=== PATIENT | female | born 1965 | race Caucasian/White ===

== ENCOUNTER → 2017-06-26 | Outpatient (CLI) | payer OTHER ==
[~2017-06-26] MED LIST: ACYC1OIN4 TOP; ASPEC325 PO; BENZ100C84 PO; CALC500C70 PO; CEPH500C2 PO; CHOL1000 PO; CITA40TA4 PO; CYAN100020 PO; CYAN500T13 PO; DICL1GEL12 TOP; DIPH25CA PO; FEXO1TAB49 PO; FLUO20CA35 PO; MELO7.5T5 PO; MULTTAB PO; OMEG10007 PO; OXYM0.0592 NAE; POTA-74 PO; TRAZ50TA35 PO
== END | disposition home or self-care (01) ==
LOC: C.LABSPEC 09:46
PROVIDERS: ATTEND Internal Medicine
DX: R35.0 Frequency of micturition (principal)

== ENCOUNTER 2017-06-27 00:38 | Emergency (ER) | payer OTHER ==
[~2017-06-27] VITALS: Ht 152.4 cm; Wt 90.0 kg
[~2017-06-27 00:38] MED LIST changes: -CALC500C70 PO; -CEPH500C2 PO; -CHOL1000 PO; -CITA40TA4 PO; -CYAN100020 PO; -DICL1GEL12 TOP; -DIPH25CA PO; -FEXO1TAB49 PO; -MELO7.5T5 PO; -OXYM0.0592 NAE; -POTA-74 PO; -TRAZ50TA35 PO
[2017-06-27 00:46] VITALS: TEMP 37; Ht 152.4 cm; Wt 90.0 kg
[2017-06-27] MEDS ORDERED: TRAMADOL HCL 50 MG TAB PO STA (01:19)
[2017-06-27] MEDS ORDERED: TRAZ50TA35 PO (01:36)
[2017-06-27] MEDS ORDERED: CITA40TA4 PO (01:37)
[2017-06-27] MEDS ORDERED: MELO7.5T5 PO (01:38)
[2017-06-27] MEDS ORDERED: POTA-74 PO (01:39)
[2017-06-27] MEDS ORDERED: FEXO1TAB49 PO (01:41)
[2017-06-27] MEDS ORDERED: CEPH500C2 PO (01:42)
[2017-06-27] MEDS ORDERED: OXYM0.0592 NAE (01:43)
[2017-06-27] MEDS ORDERED: DIPH25CA PO (01:44)
[2017-06-27] MEDS ORDERED: CALC500C70 PO (01:46)
[2017-06-27] MEDS ORDERED: CHOL1000 PO (01:47)
[2017-06-27] MEDS ORDERED: CYAN100020 PO (01:48)
[2017-06-27] MEDS ORDERED: KETOROLAC TROMETHAMINE 60 MG/2 ML VIAL IM STA (02:22)
[2017-06-27] MEDS ORDERED: DICL1GEL12 TOP (02:24)
--- NOTE | 2017-06-27 02:27 | EMERGENCY ROOM VISIT NOTE ---
ED Visit Note First contact with patient: 01:01 CHIEF COMPLAINT: Left knee pain HISTORY OF PRESENT ILLNESS: This 51-year-old female patient presents to the emergency department approximately 7 hours after sustaining an injury to the left knee when she fell in her bedroom. The patient states she was getting ready for work, when she slipped on the laminate floor in the bedroom. When she fell, she believes she scraped her hand on the table, but states she landed on her left knee straight on the floor. She did go to work, however was sent home due to the worsening pain. At 6:00, the patient took some ibuprofen and placed ice on the knee. She was initially able to walk, however states now she is not able. The patient denies any other injuries besides their knee. The patient denies swelling or bruising. There is pain in the lateral aspect of the knee. They rate the pain as severe and 8/10. The patient states they are now not able to walk on it. No numbness or tingling. No previous injuries to this knee. No ankle, foot or hip pain. REVIEW OF SYSTEMS: A 6 system review of systems was completed with positives and pertinent negatives listed in the HPI. ALLERGIES: None MEDICATIONS: Aspirin, Keflex, citalopram, vitamin B12, Benadryl, Octavia, Mobic , Flonase, potassium, trazodone PMH: Anxiety SOCIAL HISTORY: The patient lives locally with family. She denies drug, alcohol , tobacco use. PHYSICAL EXAM: Vital Signs: Reviewed Nurse's notes, vital signs stable. GENERAL : This is a 51-year-old female, no acute distress, but appears in pain, well- developed, well-nourished. MENTAL STATUS: Alert, oriented to person place and time, and cooperative. MUSCULOSKELETAL: The left knee is mildly swollen. There is no ecchymosis. There is no obvious joint effusion present. The patient is tender over the lateral aspect of the knee. There is no joint line tenderness. The patella does appropriately subluxate. Range of motion is limited. The patient states she is unable to flex the knee. Strength of the quads and hamstrings is 5/5. Juan's is negative. Narinder's and Anterior Drawer tests are negative. There is discomfort with varus and valgus stressing. The foot and toes are warm and well-perfused. Dorsalis pedis pulse 2+. Sensation to pain and light touch is intact. Capillary refill less than 2 seconds. RADIOLOGY: X-Ray Left Knee: FINDINGS: No acute fracture or malalignment. Joint spaces preserved. Tricompartmental degenerative changes evidenced by osteophytosis. Chondrocalcinosis may also be present in the medial compartment. Osteophytosis at the intercondylar region also suggested. Moderate knee joint effusion. Calcification in the distal patellar tendon or immediately superficial to the patellar tendon likely degenerative in etiology. IMPRESSION: 1. Tricompartmental degenerative changes with moderate knee joint effusion. 2. No acute osseous injury. EMERGENCY DEPARTMENT COURSE: I examined the patient. I offered Tylenol initially for pain and the patient's daughter becomes aggitated and states "she is going to need something stronger than Tylenol." I offered Tramadol. The patient was given a dose of Tramadol. X-rays of the left knee were reviewed by myself and Dr. Mcintosh and reveals suspicions for patellar tendon injury. The x- rays were reviewed by radiologist in the morning which did show some calcification at the distal patellar tendon which is likely degenerative in etiology. On re-evaluation, the patient is now slurring her speech and repeatedly asking questions. She continues to experience pain and inability to flex the knee. I discussed suspicions with the patient and her daughter at bedside. The patient's daughter states the Tramadol did not help with the patient's pain and requests for her to have a shot of pain medication. The patient was given a shot of Toradol. The patient's daughter then requests a prescription for pain medication, however, I discussed with her that as there is no obvious injury on x-ray, and due to the mechanism of injury, I recommended treatment with anti-inflammatory medication and Tylenol. The patient 's daughter now states "Tramadol isn't even a narcotic. I guess we will have to go somewhere else tomorrow for pain medicine, since you won't give her any." I offered a script for Mobic or Diclofenac, but the patient states she already has Mobic. She was offered a script for Voltaren gel. She is willing to take this script. The patient was placed in a knee immobilizer under my direction and the position was satisfactory. The patient was instructed on the use of a walker. Discharge instructions reviewed. The patient was discharged home in good condition. I attest that I have personally reviewed the patient's current medication list. Patient was found to have normal blood pressure on screening and does not require follow-up. DIFFERENTIAL DIAGNOSIS: Fracture, contusion, patellar tendon injury, sprain/ strain, malignancy, and others DIAGNOSIS: Left knee contusion Problem List Medical Problems: (1) Depression Status: Chronic Surgical Problems: (1) H/O shoulder surgery Status: Resolved Current/Historical Medications Scheduled Calcium/Vitamin D (Os-Gurmeet 500 Plus D), 1 TAB PO DAILY Cephalexin Monohydrate (Keflex), 500 MG PO QID Cholecalciferol (Vitamin D3), 1,000 UNITS PO DAILY Citalopram (Citalopram Hydrobromide), 40 MG PO DAILY Cyanocobalamin (Vitamin B12), 500 MCG PO DAILY Diclofenac Sodium (Topical) (Voltaren 1% Top Gel), 1 APPLN TOP QID Fexofenadine Hcl (Octavia Allergy), 180 MG PO DAILY Fish Oil (Snelling-3), 1 CAP PO BID Meloxicam (Mobic), 15 MG PO DAILY Multivitamins/Minerals (Mvi With Minerals), 1 TAB PO DAILY Potassium Chloride (Potassium Chloride Er), 50 MG PO DAILY Trazodone Hcl (Trazodone), 50 MG PO HS Scheduled PRN Diphenhydramine Hcl (Allergy Relief), Unknown Dose PO DIRECTED PRN for Allergic Reaction Oxymetazoline Hcl (Nasal [place]), 1 SPRAY GARFIELD DIRECTED PRN for dryness Allergies Coded Allergies: No Known Allergies (Unverified , 06/27/17) Vital Signs Date Time Temp Pulse Resp B/P (MAP) Pulse Ox O2 Delivery O2 Flow Rate FiO2 06/27/17 03:11 70 20 97 06/27/17 02:59 76 18 147/66 98 Room Air 06/27/17 00:46 37.0 84 20 139/77 97 Room Air Medications Administered Medications (Trade) Dose Ordered Sig/Armani Route Start Time Stop Time Status Last Admin Dose Admin Tramadol HCl (Ultram Tab) 50 mg NOW STAT PO 06/27/17 01:19 06/27/17 01:20 DC 06/27/17 01:38 50 MG Ketorolac Tromethamine (Toradol Inj) 30 mg NOW STAT IM 2/4/18 02:22 06/27/17 02:23 DC 06/27/17 02:40 30 MG Departure Information Impression Primary Impression: Fall Additional Impression: Contusion of left knee Dispostion Home / Self-Care Condition GOOD Prescriptions Diclofenac Sodium (Topical) (VOLTAREN 1% TOP GEL) 1 % Gel 1 APPLN TOP QID, #1 TUBE Prov: JasonElenitaElinjen Weeks, URSZULA 06/27/17 Referrals Zaira Lopez M.D. (PCP) Marcello Levine M.D. Patient Instructions ED Contusion Lower Ext, ED Immobilizer Knee, My [facility] Additional Instructions You have been treated in the Emergency Department for Knee Pain. You have received pain medicine in the emergency department which impairs your ability to operate a vehicle. It is illegal for you to drive after receiving these medicines. As discussed, x-rays did not reveal any acute fracture, dislocation, or obvious soft-tissue injury. This does appear to be a contusion, or bruise. You have been prescribed Voltaren Gel to be used for pain. Use this medication as directed. For pain control, you can use the following whel-qtq-cijlogm medicines (if >12 yo): Ibuprofen(Motrin, Advil) may be used for fever or pain. Use 600mg every six hours as needed. Take with food. Avoid using more than 2400mg in a 24 hour period. Do not use 2400mg per day for more than three consecutive days without physician direction. Prolonged inappropriate use can lead to stomach upset or ulcers. Do not take this medication with other NSAIDs including ibuprofen, Naprxen, Naprosyn, Advil, Motrin, Aleve, Meloxicam) (AND/OR) Acetaminophen(Tylenol) may be used for fever or pain. Use 1000mg every six hours as needed. Avoid using more than 3000mg in a 24 hour period. If this is a recent injury (<24 hrs), ice can be applied to the area of pain for the first 3 days to help decrease pain and inflammation. Ice massages can be performed by freezing water in a paper cup, peeling back the cup to expose the ice and then massaging over the affected area. You have been provided the number for an Orthopaedic Surgeon. You should call this number as soon as possible to establish a follow-up visit from today's Emergency Department visit. Keep the knee brace in place until cleared by Orthopedics. Use the walker you have been provided to keep ALL weight off of the knee until weight bearing is tolerable. Return to the Emergency Department if your current symptoms worsen despite treatment course outlined above. Problem Qualifiers Primary Impression: Fall Encounter type: initial encounter Qualified Codes: W19.XXXA - Unspecified fall, initial encounter Additional Impression: Contusion of left knee Encounter type: initial encounter Qualified Codes: S80.02XA - Contusion of left knee, initial encounter
[2017-06-27 02:59] VITALS: BP 147/66
[2017-06-27 03:11] VITALS: PULSE 70; O2SAT 97
--- NOTE | 2017-06-27 06:48 | DIAGNOSTIC IMAGING REPORT ---
L KNEE 1 OR 2 VIEWS ROUTINE CLINICAL HISTORY: 51 years-old Female presenting with Left knee pain s/p fall. TECHNIQUE: Frontal and lateral views of the left knee were obtained. COMPARISON: None. FINDINGS: No acute fracture or malalignment. Joint spaces preserved. Tricompartmental degenerative changes evidenced by osteophytosis. Chondrocalcinosis may also be present in the medial compartment. Osteophytosis at the intercondylar region also suggested. Moderate knee joint effusion. Calcification in the distal patellar tendon or immediately superficial to the patellar tendon likely degenerative in etiology. IMPRESSION: 1. Tricompartmental degenerative changes with moderate knee joint effusion. 2. No acute osseous injury. Electronically signed by: Ernesto Arce M.D. 06/27/2017 6:47 AM Dictated Date/Time: 06/27/2017 6:45 AM
== END 2017-06-27 03:12 | disposition home or self-care (01) ==
LOC: C.EDB 00:40
DX: S80.02XA Contusion of left knee, initial encounter (principal); W01.0XXA Fall on same level from slipping, tripping and stumbling without subsequent striking against object, initial encounter; Y92.003 Bedroom of unspecified non-institutional (private) residence as the place of occurrence of the external cause; Y93.E8 Activity, other personal hygiene; F41.9 Anxiety disorder, unspecified; Z79.82 Long term (current) use of aspirin

== ENCOUNTER 2020-03-29 13:55 | Observation (INO) ==
[2020-03-29] MEDS ORDERED: SODIUM CHLORIDE 0.9% 1000ML 1,000 ML IV STA (14:32)
[2020-03-29] MEDS ORDERED: CLINDAMYCIN 600 MG in DEXTROSE 5% 50 ML IV ONE (14:32)
--- NOTE | 2020-03-29 14:39 | Emergency Department Note ---
History of Present Illness General Chief complaint: Referred by Doctor Stated complaint: DR SENT/NEEDS IV ANTIBIOTICS Time Seen by Provider: 03/29/20 14:19 Source: patient History of Present Illness Provider complaint: Mouth pain Onset (ago): week(s) Location: mouth and right Radiation: neck Severity: mild Pain Consistency: + constant Maximum Pain Intensity: 3 Quality: + aching Exacerbated By: + other (Swallowing) Associated symptoms: no chest pain, no cough, no fever/chills, no nausea/vo miting and no shortness of breath This is a 54-year-old female sent over from her doctor's office for an abnormal CT scan. The patient has been having a right-sided sore throat radiating into her neck for the past 9 days. She describes it as an aching pain. It is worse when she tries to swallow. No associated difficulty breathing or fevers. She states today it feels better and she can swallow more easily. She rates it a 3 out of 10 in severity. She saw an urgent care center 7 days ago and was placed on Augmentin. Her PCP then added doxycycline 2 days ago. She had a CAT scan today which showed an infection and was told to come to the emergency depa rtment. She states that she had a right mandibular tooth extraction 2 months ago. She also had a Covid test today which was negative. This is done routinely because she works at the [employer] at [facility]. She denies any chest pain, shortness of breath, cough, abdominal pain, vomiting, diarrhea or urinary symptoms. She does state that she has a chronic problem with a dry mouth. Home Medications Home Medications Medication Instructions Recorded Confirmed Type calcium carbonate-vitamin D3 1 tab PO DAILY 02/22/18 03/29/20 History [Calcium 500 With D] diphenhydramine HCl [Benadryl] 25 mg PO HS PRN 02/22/18 03/29/20 History fexofenadine [Octavia Allergy] 180 mg PO DAILY PRN 02/22/18 03/29/20 History fluticasone propionate [Flonase 2 spray INTRANASAL DAILY 02/22/18 03/29/20 History Allergy Relief] losartan [Cozaar] 50 mg PO DAILY 02/22/18 03/29/20 History meloxicam [Mobic] 15 mg PO DAILY 02/22/18 03/29/20 History multivitamin 1 tab PO DAILY 02/22/18 03/29/20 History omega 8-vqj-iah-fish oil [Fish Oil] 1 tab PO DAILY 02/22/18 03/29/20 History trazodone 50 mg PO HS 02/22/18 03/29/20 History vitamin E 400 unit PO BID 02/22/18 03/29/20 History montelukast [Singulair] 10 mg PO PM 12/11/18 03/29/20 History amoxicillin-pot clavulanate 1 tab PO BID 03/29/20 03/29/20 History dextroamphetamine-amphetamine 10 mg PO QDD 03/29/20 03/29/20 History dextroamphetamine-amphetamine 30 mg PO DAILY 03/29/20 03/29/20 History [Adderall XR] docosanol [Abreva] 1 applic TOPICAL UD PRN 03/29/20 03/29/20 History doxycycline hyclate 100 mg PO BID 03/29/20 03/29/20 History escitalopram oxalate [Lexapro] 20 mg PO DAILY 03/29/20 03/29/20 History garlic 1,000 mg PO DAILY 03/29/20 03/29/20 History ibuprofen [IBU] 800 mg PO TID PRN 03/29/20 03/29/20 History ondansetron HCl 4 mg PO Q6H PRN 03/29/20 03/29/20 History ropinirole 2 mg PO HS 03/29/20 03/29/20 History valacyclovir [Valtrex] 500 mg PO DAILY 03/29/20 03/29/20 History venlafaxine [Effexor XR] 75 mg PO DAILY 03/29/20 03/29/20 History Allergies Allergy/AdvReac Type Severity Reaction Status Date / Time sulfamethoxazole Allergy Severe RASH & Verified 03/29/20 15:53 [From Bactrim] BLISTERS trimethoprim [From Bactrim] Allergy Severe RASH & Verified 03/29/20 15:53 BLISTERS Past Med/Surg History Medical History Depression Hypertension Surgical History H/O shoulder surgery History of delivery History of cholecystectomy History of tubal ligation Family History Mother Colorectal cancer Hypertension Social History Smoking Status: Former smoker Hx Alcohol Use: Yes Alcohol Intake Frequency: Monthly or Less Preferred Language: Khmer Feels Safe at Home: Yes Review of Systems See HPI for pertinent positives & negatives. and A total of 10 systems reviewed and were otherwise negative Physical Exam Vital Signs Vital Signs - 24 hr 03/29/20 13:58 03/29/20 15:38 03/29/20 16:45 Temperature 36.8 C Temperature Source Oral Pulse Rate 82 Pulse Rate [Finger] 70 67 Respiratory Rate 18 18 18 Respiratory Effort / Characteristics Non-Labored Spontaneous Non-Labored Non-Labored Respiratory Depth Normal Normal Normal Respiratory Pattern Regular Blood Pressure 139/91 Blood Pressure [Right Arm] 132/77 128/86 Blood Pressure Mean 107 Blood Pressure Mean [Right Arm] 95 100 Blood Pressure Position Sitting Pulse Oximetry 96 96 95 Oxygen Delivery Method Room Air Room Air Room Air Sepsis Recent Fever Within 48 Hours No Sepsis New/Unexplained Change in Mental Status N/A Sepsis Action Taken by Nursing No Action Required 03/29/20 17:54 Temperature 36.8 C Temperature Source Oral Pulse Rate Pulse Rate [Finger] 69 Respiratory Rate 18 Respiratory Effort / Characteristics Respiratory Depth Respiratory Pattern Blood Pressure Blood Pressure [Right Arm] 145/75 H Blood Pressure Mean Blood Pressure Mean [Right Arm] 98 Blood Pressure Position Pulse Oximetry 97 Oxygen Delivery Method Room Air Sepsis Recent Fever Within 48 Hours Sepsis New/Unexplained Change in Mental Status Sepsis Action Taken by Nursing Constitutional: Vital signs reviewed. Eyes: Pupils are equal round reactive to light. Conjunctiva are noninjected. ENT: Pharynx is erythematous with a very dry tongue which is slightly swollen but not significantly elevated. Some mild submental firmness. She is mostly tender over the right submandibular region without significant swelling. Cervical lymphadenopathy is noted. Neck supple without meningeal signs. Respiratory: Clear to auscultation bilaterally. Breath sounds are equal bilaterally. No wheezing or stridor. Cardiovascular: Regular rate and rhythm. No rubs or gallops. GI: Soft, nondistended and nontender. Bowel sounds are present. Musculoskeletal: No peripheral edema. No lower extremity tenderness. Integumentary: No cyanosis. or jaundice. Neurological: The patient is awake and alert. No focal deficits. Psychiatric: Normal affect. Not anxious appearing. Course Administered Medications Sodium Chloride (Nss 1000ml) 1,000 mls @ 125 mls/hr IV .Q8H STA Stop: 03/29/20 22:31 Last Admin: 03/29/20 16:04 Dose: 125 mls/hr Documented by: [id number] Discontinued Medications Clindamycin Phosphate 600 mg/ (Dextrose) 54 mls @ 100 mls/hr IV ONE ONE Stop: 03/29/20 15:04 Last Infusion: 03/29/20 16:34 Dose: 0 mls/hr Documented by: [id number] Admin: 03/29/20 16:02 Dose: 100 mls/hr Documented by: [id number] Medical Decision Making Differential Diagnosis Facial cellulitis, Anneliese's angina, abscess, sialoadenitis, Sjogren's syndrome Medical Records Attestation: I reviewed the patient's medical records. I did perform a limited focused review of portions of the patient's old chart on the electronic medical record. The patient has had no recent pertinent visits to this hospital. See below for CT report. Laboratory Data Attestation: I reviewed the patient's lab results. Result diagrams: 03/29/20 14:48 03/29/20 14:48 Lab Results 03/29/20 03/29/20 03/29/20 Range/Units 14:48 14:48 14:48 WBC 5.32 (4.8-10.8) K/uL RBC 4.50 (4.2-5.4) M/uL Hgb 13.4 (12.0-16.0) g/dL Hct 40.7 (37-47) % MCV 90.4 (80-100) fL MCH 29.8 (25-34) pg MCHC 32.9 (32-36) g/dL RDW Std Deviation 42.9 (36.4-46.3) fL RDW Coeff of Leo 12.9 (11.5-14.5) % Plt Count 283 (130-400) K/uL MPV 10.8 H (7.4-10.4) fL Immature Gran % (Auto) 0.2 % Neut % (Auto) 66.2 % Lymph % (Auto) 26.1 % [place] % (Auto) 5.8 % Eos % (Auto) 1.1 % Baso % (Auto) 0.6 % Neut # (Auto) 3.52 (1.4-6.5) K/uL Lymph # (Auto) 1.39 (1.2-3.4) K/uL [place] # (Auto) 0.31 (0.11-0.59) K/uL Eos # (Auto) 0.06 (0-0.5) K/uL Baso # (Auto) 0.03 (0-0.2) K/uL Immature Gran # (Auto) 0.01 (0.00-0.02) K/uL PT 10.8 (9.0-12.0) Seconds INR 1.0 (0.9-1.1) APTT 27.3 (21.0-31.0) Seconds PTT Ratio 1.0 Sodium 139 (136-145) mmol/L Potassium 4.1 (3.5-5.1) mmol/L Chloride 104 (98-107) mmol/L Carbon Dioxide 28 (21-32) mmol/L Anion Gap 7.0 (3-11) BUN 17 (7-18) mg/dl Creatinine 0.73 (0.6-1.2) mg/dl Est Cr Clr Drug Dosing 88.3 ml/min Est GFR ( Amer) 107.5 Est GFR (Non-Af Amer) 92.7 BUN/Creatinine Ratio 23.1 H (10-20) Glucose 96 (70-99) mg/dl Calcium 9.4 (8.5-10.1) mg/dl Total Bilirubin 0.2 (0.2-1) mg/dl AST 30 (15-37) U/L ALT 44 (12-78) U/L Alkaline Phosphatase 90 (45-117) U/L Total Protein 8.6 H (6.4-8.2) gm/dl Albumin 3.9 (3.4-5.0) gm/dl Globulin 4.7 H (2.5-4.0) gm/dl Albumin/Globulin Ratio 0.8 L (0.9-2) Imaging Data Radiologist's Impression: I did obtain records from the [facility] system. The patient had a CT of the neck with contrast today at 8:35 AM. She has multispatial anterior right cervical fascial inflammatory changes consistent with cellulitis and phlegmon. Cellulitic changes extend around the recently extracted right anterior lateral tooth socket. Notable involvement of the sublingual space and lateral deep tongue muscles. No discrete drainable rim- enhancing fluid collection. Symmetric advanced fatty atrophy of the parotid and submandibular glands consistent with remote chronic sialoadenitis. Acute on chronic right remnant submandibular sialoadenitis is considered. MDM Narrative I did evaluate the patient as noted above. IV access was established. I did treat the patient with IV clindamycin as she has already been on Augmentin and doxycycline. She was also given a liter of normal saline IV. I did discuss the CT results with her. 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 I did discuss the case with Dr. Mann of oral surgery. He agreed with my choice of antibiotics and recommend hospitalization for IV antibiotics. He will see the patient later in the day. I did order and review the patient's blood work as noted in the electronic medical record. Her white blood cell count is not elevated. CBC and electrolytes are unremarkable. Blood cultures were ordered and obtained prior to and of the antibiotic administration. I did discuss the test results with the patient. I did discuss the case with the hospitalist and pillowcase cleaner. Impression & Plan Sublingual infection, Facial infection, Acute sialoadenitis Discharge Plan Visit Data Chief Complaint: Referred by Doctor Stated Complaint: DR JOY/NEEDS IV ANTIBIOTICS ED Provider: Arun Vega Discharge Problem: Sublingual infection, Facial infection, Acute sialoadenitis Forms Stand Alone Forms: My [facility] Prescriptions Prescriptions: No Action multivitamin Tablet 1 tab PO DAILY RF: 0 losartan [Cozaar] 50 mg tablet 50 mg PO DAILY RF: 0 trazodone 50 mg tablet 50 mg PO HS RF: 0 meloxicam [Mobic] 15 mg tablet 15 mg PO DAILY RF: 0 fexofenadine [Octavia Allergy] 180 mg tablet 180 mg PO DAILY PRN (Reason: Allergic Symptoms) RF: 0 diphenhydramine HCl [Benadryl] 25 mg Capsule 25 mg PO HS PRN (Reason: Insomnia) RF: 0 fluticasone propionate [Flonase Allergy Relief] 50 mcg/actuation spray,suspension 2 spray Intranasal DAILY RF: 0 vitamin E 400 unit Capsule 400 unit PO BID RF: 0 calcium carbonate-vitamin D3 [Calcium 500 With D] 500 mg(1,250mg) -400 unit Tablet 1 tab PO DAILY RF: 0 omega 5-owi-fth-fish oil [Fish Oil] 1,000 mg (120 mg-180 mg) Capsule 1 tab PO DAILY RF: 0 montelukast [Singulair] 10 mg Tablet 10 mg PO PM RF: 0 docosanol [Abreva] 10 % Cream 1 applic TOPICAL UD PRN (Reason: breakouts) RF: 0 venlafaxine [Effexor XR] 75 mg capsule,extended release 24hr 75 mg PO DAILY RF: 0 doxycycline hyclate 100 mg capsule 100 mg PO BID RF: 0 ibuprofen [IBU] 800 mg tablet 800 mg PO TID PRN (Reason: Pain) RF: 0 ondansetron HCl 4 mg Tablet 4 mg PO Q6H PRN (Reason: Nausea) RF: 0 valacyclovir [Valtrex] 500 mg tablet 500 mg PO DAILY RF: 0 garlic 1,000 mg Capsule 1,000 mg PO DAILY RF: 0 ropinirole 2 mg tablet 2 mg PO HS RF: 0 dextroamphetamine-amphetamine [Adderall XR] 30 mg capsule,extended release 24hr 30 mg PO DAILY RF: 0 escitalopram oxalate [Lexapro] 20 mg tablet 20 mg PO DAILY RF: 0 dextroamphetamine-amphetamine 10 mg tablet 10 mg PO QDD RF: 0 amoxicillin-pot clavulanate 875-125 mg tablet 1 tab PO BID RF: 0 Referrals Referrals: Zaira Lopez MD [Primary Care Provider] -
[2020-03-29 15:03] LABS: Basophils # (auto) 0.03 K/uL (0-0.2); Basophils % (auto) 0.6 %; Eosinophils # (auto) 0.06 K/uL (0-0.5); Eosinophils % (auto) 1.1 %; Hematocrit (blood only) 40.7 % (37-47); Hemoglobin 13.4 g/dL (12.0-16.0); Immature Granulocytes # (auto) 0.01 K/uL (0.00-0.02); Immature Granulocytes % (auto) 0.2 %; Lymphocytes # (auto) 1.39 K/uL (1.2-3.4); Lymphocytes % (auto) 26.1 %; Mean Corpuscular Hemoglobin 29.8 pg (25-34); Mean Corpuscular Hgb Conc 32.9 g/dL (32-36); Mean Corpuscular Volume 90.4 fL (80-100); Mean Platelet Volume 10.8 fL (7.4-10.4); Monocytes # (auto) 0.31 K/uL (0.11-0.59); Monocytes % (auto) 5.8 %; Neutrophils # (auto) 3.52 K/uL (1.4-6.5); Neutrophils % (auto) 66.2 %; Platelet Count 283 K/uL (130-400); RDW Coefficient of Variation 12.9 % (11.5-14.5); RDW Standard Deviation 42.9 fL (36.4-46.3); White Blood Count 5.32 K/uL (4.8-10.8)
[2020-03-29 15:29] LABS: Partial Thromboplastin Time 27.3 Seconds (21.0-31.0); Prothrombin Time 10.8 Seconds (9.0-12.0)
[2020-03-29 15:37] LABS: Albumin Level 3.9 gm/dl (3.4-5.0); BUN Creatinine Ratio 23.1 (10-20); Calcium 9.4 mg/dl (8.5-10.1); Creatinine Clr Calc Pharmacy 88.3 ml/min; Est GFR (African American) 107.5; Est GFR (Non-African American) 92.7; Potassium 4.1 mmol/L (3.5-5.1)
[2020-03-29 15:40] LABS: Albumin Globulin Ratio 0.8 (0.9-2); Bilirubin,Total 0.2 mg/dl (0.2-1); Globulin 4.7 gm/dl (2.5-4.0); Total Protein 8.6 gm/dl (6.4-8.2)
--- NOTE | 2020-03-29 18:20 | History & Physical Report ---
Date of Service March 29, 2020 Assessment & Plan (1) Dental infection: -Admit to [facility] -Patient presenting by referral PCPs office for evaluation of dental infection and abnormal neck CT as noted below -Despite markedly abnormal neck CT, patient appears to be doing well. She reports significant improvement in her symptoms since starting the doxycycline. -Hemodynamically stable, saturating well on room air, labs unremarkable -Observe overnight for evaluation by oral maxillofacial surgeon tomorrow, case discussed with Dr. Mann -S/p IV Clinda in the ED, will continue with (2) Hypertension: -BP controlled, continue losartan (3) Depression: -Stable, continue home medications (4) DVT prophylaxis: -SCDs, ambulate History of Present Illness Chief Complaint: Referred by PCP for dental infection Primary Care Provider: Zaira Lopez MD 54-year-old female with PMH HTN, RLS, depression, and other problems as below who was referred to the ED by PCP for evaluation of abnormal neck CT and dental infection. Patient reports that 1 week ago, she developed sore throat and right facial swelling. Patient was seen at [facility] and was prescribed Augmentin on 03/22. Patient reports she had no improvement. She was also having trismus. Patient was seen by PCP on 03/27 and prescribed doxycycline in addition to the Augmentin. Patient reports significant improvement in swelling and throat pain since the addition of doxycycline. She had a CT of the neck performed today that showed multispatial anterior right cervicofacial inflammatory changes consistent with cellulitis and phlegmon. Cellulitic changes extend around the recently extracted right anterolateral tooth socket, suggesting an odontogenic origin. Patient was for to the ED for further evaluation. She reports that she was having some difficulty swallowing however that has resolved. Patient denies fevers and chills. No chest pain or shortness of breath. Denies lightheadedness, dizziness, diaphoresis, syncopal events. No abdominal pain, nausea, vomiting, diarrhea. Denies urinary symptoms. In the ED, patient is hemodynamically stable, saturating well on room air. Labs are unremarkable. Patient was given IVF and IV clindamycin. Of note, patient reports being tested this morning for COVID 19 by her employer and results were negative. Allergies Allergy/AdvReac Type Severity Reaction Status Date / Time sulfamethoxazole Allergy Severe RASH & Verified 03/29/20 15:53 [From Bactrim] BLISTERS trimethoprim [From Bactrim] Allergy Severe RASH & Verified 03/29/20 15:53 BLISTERS Home Medications Home Medications Medication Instructions Recorded Confirmed Type calcium carbonate-vitamin D3 1 tab PO DAILY 02/22/18 03/29/20 History [Calcium 500 With D] diphenhydramine HCl [Benadryl] 25 mg PO HS PRN 02/22/18 03/29/20 History fexofenadine [Octavia Allergy] 180 mg PO DAILY PRN 02/22/18 03/29/20 History fluticasone propionate [Flonase 2 spray INTRANASAL DAILY 02/22/18 03/29/20 History Allergy Relief] losartan [Cozaar] 50 mg PO DAILY 02/22/18 03/29/20 History meloxicam [Mobic] 15 mg PO DAILY 02/22/18 03/29/20 History multivitamin 1 tab PO DAILY 02/22/18 03/29/20 History omega 8-vla-zdw-fish oil [Fish Oil] 1 tab PO DAILY 02/22/18 03/29/20 History trazodone 50 mg PO HS 02/22/18 03/29/20 History vitamin E 400 unit PO BID 02/22/18 03/29/20 History montelukast [Singulair] 10 mg PO PM 12/11/18 03/29/20 History dextroamphetamine-amphetamine 10 mg PO QDD 03/29/20 03/29/20 History dextroamphetamine-amphetamine 30 mg PO DAILY 03/29/20 03/29/20 History [Adderall XR] docosanol [Abreva] 1 applic TOPICAL UD PRN 03/29/20 03/29/20 History escitalopram oxalate [Lexapro] 20 mg PO DAILY 03/29/20 03/29/20 History garlic 1,000 mg PO DAILY 03/29/20 03/29/20 History ibuprofen [IBU] 800 mg PO TID PRN 03/29/20 03/29/20 History ondansetron HCl 4 mg PO Q6H PRN 03/29/20 03/29/20 History ropinirole 2 mg PO HS 03/29/20 03/29/20 History valacyclovir [Valtrex] 500 mg PO DAILY 03/29/20 03/29/20 History venlafaxine [Effexor XR] 75 mg PO DAILY 03/29/20 03/29/20 History amoxicillin-pot clavulanate 1 tab PO BID #12 tab 03/30/20 Rx doxycycline hyclate 100 mg PO BID #12 cap 03/30/20 Rx Past Med/Surg History Medical History Depression Hypertension Surgical History H/O shoulder surgery History of delivery History of cholecystectomy History of tubal ligation Family History Mother Colorectal cancer Hypertension Social History Smoking Status: Former smoker Hx Alcohol Use: Yes Alcohol Intake Frequency: Monthly or Less Hx Substance Use: No Preferred Language: Jamaican Communication Ability: Effective Beliefs That Will Affect Care: None Current Living Situation: Family Feels Safe at Home: Yes Assistive Devices: None Review of Systems Review of Systems: ROS per HPI, all other systems reviewed and negative Physical Exam Constitutional: WD/WN, vitals as above Eyes: PERRL, conjunctivae normal, anicteric sclerae ENMT: Ears: no external ear abnormality Nose: no external nose abnormality Right lower tooth extraction site without redness or drainage Neck: no tracheal deviation and neck nontender Mild right-sided neck swelling Respiratory: normal respiratory effort, lungs clear to auscultation Cardiovascular: Rate/Rhythm: regular rate and regular rhythm Vessels: normal peripheral pulses Extremities: no edema Gastrointestinal (Abdomen): normal bowel sounds, soft, nontender, no hepatosplenomegaly Musculoskeletal: no cyanosis or clubbing, extremities motor strength 5/5 Skin: no rashes, warm and dry Neurologic: PERRL, EOMI, accommodation nl, no face palsy, no dysarthria Psychiatric: A+Ox3, euthymic affect Results & Data Results & Data ([facility]) Vital Signs (Past 12 Hours) Vital Signs Temp Pulse Pulse Resp BP BP Pulse Ox 03/29/20 17:54 36.8 C 69 18 145/75 H 97 03/29/20 16:45 67 18 128/86 95 03/29/20 15:38 70 18 132/77 96 03/29/20 13:58 36.8 C 82 18 139/91 96 Laboratory Results Short CBC 03/29/20 Range/Units 14:48 WBC 5.32 (4.8-10.8) K/uL Hgb 13.4 (12.0-16.0) g/dL Hct 40.7 (37-47) % Plt Count 283 (130-400) K/uL BMP 03/29/20 14:48 Sodium 139 Potassium 4.1 Chloride 104 Carbon Dioxide 28 BUN 17 Creatinine 0.73 Glucose 96 Calcium 9.4 Liver Function 03/29/20 Range/Units 14:48 Total Bilirubin 0.2 (0.2-1) mg/dl AST 30 (15-37) U/L ALT 44 (12-78) U/L Alkaline Phosphatase 90 (45-117) U/L Albumin 3.9 (3.4-5.0) gm/dl Diagnostic Findings CT NECK WITH IV CONTRAST IMPRESSION (performed at [facility] 03/29/2020) Multispatial anterior right cervicofacial inflammatory changes consistent with cellulitis and phlegmon, as detailed. Cellulitic changes extend around the recently extracted right anterolateral tooth socket, suggesting an odontogenic origin. Notable involvement of the sublingual space and lateral deep tongue muscles. No discrete, drainable rim-enhancing fluid collection. Notable involvement of the sublingual space and lateral deep tongue muscles. No critical airway narrowing. Symmetric advanced fatty atrophy of the parotid and submandibular glands, consistent with remote chronic sialadenitis, most likely Sjogren syndrome or other autoimmune disease. Acute on chronic right remnant submandibular sialadenitis is also considered for the aforementioned cellulitic changes, although less likely. Reactive right anterior chain cervical adenopathy. Code Status & VTE Plan VTE Prophylaxis Plan VTE Prophylaxis will be ordered: Yes Supervising Physician Co-Signing Physician Notes Pt was seen and examined. Agreed with Emely SALES exam, assessment and plan. 54-year-old female with PMH HTN, RLS, depression was sent by PCP for abnormal outpatient CT neck . Pt said that for the last few days that she has been having sore throat and right facial swelling. She said that she was seen at the [facility] and was given Augmentin that did not provide any relief. She said that she saw her PCP on 03/27 and was prescribed doxycycline. She said that the sore throat and the swelling improves. Denies any chest pain, palpitation, dysphagia, dizziness, SOB, fever and chills. CT showed multispatial anterior right cervicofacial inflammatory changes consistent with cellulitis and phlegmon. Cellulitic changes extend around the recently extracted right anterolateral tooth socket, suggesting an odontogenic origin. Received IV clindamycin on admission, will continue abx for now. Blood cx collected in the ER, will follow. Will consult oral maxillofacial surgeon, ER physician already discussed the case with Dr. Mann. Continue monitor closely. MD Ronal
[2020-03-29] MEDS ORDERED: ACETAMINOPHEN 325 MG TAB PO PRN (19:13)
[2020-03-29] MEDS ORDERED: traZODone HCL 50 MG TAB PO SCH (21:00)
[2020-03-29] MEDS ORDERED: rOPINIRole HCL 1 MG TABLET PO SCH (21:00)
[2020-03-29] MEDS ORDERED: MONTELUKAST SODIUM 10 MG TABLET PO SCH (21:00)
[2020-03-30] MEDS: CLINDAMYCIN 600 MG in DEXTROSE 5% 50 ML IV SCH ×2 (00:50→08:12)
[2020-03-30 07:32] LABS: Hematocrit (blood only) 38.7 % (37-47); Hemoglobin 12.6 g/dL (12.0-16.0); Mean Corpuscular Hemoglobin 29.5 pg (25-34); Mean Corpuscular Hgb Conc 32.6 g/dL (32-36); Mean Corpuscular Volume 90.6 fL (80-100); Mean Platelet Volume 10.6 fL (7.4-10.4); Platelet Count 269 K/uL (130-400); RDW Standard Deviation 42.9 fL (36.4-46.3); Red Blood Count 4.27 M/uL (4.2-5.4); White Blood Count 5.39 K/uL (4.8-10.8)
[2020-03-30 07:44] LABS: BUN Creatinine Ratio 21.3 (10-20); Calcium 8.5 mg/dl (8.5-10.1); Creatinine Clr Calc Pharmacy 92.3 ml/min; Est GFR (African American) 113.6
--- NOTE | 2020-03-30 07:58 | Surgery Consultation ---
Date of Consultation March 30 2020 Oral Maxillofacial Surgery Exam ( consult abnormal CT scan results) Present Complaint: I had pain/swelling/ right side of my face that developed 2 month after I had a lower right tooth removed. Last week --pain involving the neck, jaw, throat and ear (right side) was given an antibiotic got worse was given additional antibiotics and PCP suggested new CT scan done at [facility] (i did not see or review this CT scan) After the CT was reviewed by her PCP it ws suggested she present to ED at [facility] for IV therapy and possible admission for further evaluation. A detailed oral exam was completed. Finding--This is a very normal exam, tissue looks great, well healed ext site lower right, excellent ROM, No swelling in the submandibular, floor of the mouth, throat, parotid or subperiosteal spaces. NO EVIDENCE OF ACTIVE INFECTION OR DRAINABLE FLUID Soft tissue of the floor of the mouth, tongue, hard/soft palate, posterior pharyngeal area all with in normal limits, no pathology or abnormal findings noted. Cancer exam--No lesions noted that require follow up or Bx. Oral Care---Overall oral care is good Occlusion---Class Class I with missing teeth TMJ exam: No pop, clicking, pain, good ROM, No history of TMJ injury or dysfunction Periodontal exam---fair, some minimal periodontal issues, this is NOT the cause of the current problem Neck is supple, FROM, Able to extend and flex neck w/o difficulty, no masses, no abnormalities, no airway issues, all glands are WNL no evidence of infection. Plan: OK from oral surgery for discharge OK to resume diet Please consider oral antibiotics Suggested Ivanna follow up with her dentist for cleaning and general dental exam. No Oral Surgery needs at this time Head and neck Physical exam completed I reviewed the treatment plan Understanding was expressed. History of Present Illness Attending Physician: Yoan Villeda MD Allergies Allergy/AdvReac Type Severity Reaction Status Date / Time sulfamethoxazole Allergy Severe RASH & Verified 03/29/20 15:53 [From Bactrim] BLISTERS trimethoprim [From Bactrim] Allergy Severe RASH & Verified 03/29/20 15:53 BLISTERS Home Medications Home Medications Medication Instructions Recorded Confirmed Type calcium carbonate-vitamin D3 1 tab PO DAILY 02/22/18 03/29/20 History [Calcium 500 With D] diphenhydramine HCl [Benadryl] 25 mg PO HS PRN 02/22/18 03/29/20 History fexofenadine [Octavia Allergy] 180 mg PO DAILY PRN 02/22/18 03/29/20 History fluticasone propionate [Flonase 2 spray INTRANASAL DAILY 02/22/18 03/29/20 History Allergy Relief] losartan [Cozaar] 50 mg PO DAILY 02/22/18 03/29/20 History meloxicam [Mobic] 15 mg PO DAILY 02/22/18 03/29/20 History multivitamin 1 tab PO DAILY 02/22/18 03/29/20 History omega 9-vxk-leb-fish oil [Fish Oil] 1 tab PO DAILY 02/22/18 03/29/20 History trazodone 50 mg PO HS 02/22/18 03/29/20 History vitamin E 400 unit PO BID 02/22/18 03/29/20 History montelukast [Singulair] 10 mg PO PM 12/11/18 03/29/20 History amoxicillin-pot clavulanate 1 tab PO BID 03/29/20 03/29/20 History dextroamphetamine-amphetamine 10 mg PO QDD 03/29/20 03/29/20 History dextroamphetamine-amphetamine 30 mg PO DAILY 03/29/20 03/29/20 History [Adderall XR] docosanol [Abreva] 1 applic TOPICAL UD PRN 03/29/20 03/29/20 History doxycycline hyclate 100 mg PO BID 03/29/20 03/29/20 History escitalopram oxalate [Lexapro] 20 mg PO DAILY 03/29/20 03/29/20 History garlic 1,000 mg PO DAILY 03/29/20 03/29/20 History ibuprofen [IBU] 800 mg PO TID PRN 03/29/20 03/29/20 History ondansetron HCl 4 mg PO Q6H PRN 03/29/20 03/29/20 History ropinirole 2 mg PO HS 03/29/20 03/29/20 History valacyclovir [Valtrex] 500 mg PO DAILY 03/29/20 03/29/20 History venlafaxine [Effexor XR] 75 mg PO DAILY 03/29/20 03/29/20 History Patient History Medical History Depression Hypertension Surgical History H/O shoulder surgery History of delivery History of cholecystectomy History of tubal ligation Family History Mother Colorectal cancer Hypertension Social History Smoking Status: Former smoker Hx Alcohol Use: Yes Alcohol Intake Frequency: Monthly or Less Hx Substance Use: No Preferred Language: [place] Communication Ability: Effective Beliefs That Will Affect Care: None Current Living Situation: Family Feels Safe at Home: Yes Safety Concerns: Feels Safe At This Time Assistive Devices: Glasses Results & Data ([facility]) Vital Signs (Past 12 Hours) Vital Signs Temp Pulse Pulse Resp BP Pulse Ox 03/29/20 23:39 36.3 C L 69 16 134/76 96 03/29/20 19:45 36.4 C L 74 16 137/81 96 PG Care Time/CCT Total # of Minutes Spent Total Time Spent with Patient: Total time spent is greater than 50% in coordination of care (as documented) at patient's floor/unit and/or counseling patient: Coding Level of Care Code 78324 Inpt Consult Level 3
[2020-03-30] MEDS ORDERED: LOSARTAN POTASSIUM 50 MG TAB PO SCH (09:00)
[2020-03-30] MEDS ORDERED: DEXTROAMPHETAMINE/AMPHETAMINE ER 10 MG CAP PO SCH (09:00)
[2020-03-30] MEDS ORDERED: ESCITALOPRAM OXALATE 20 MG TAB PO SCH (09:00)
[2020-03-30] MEDS ORDERED: VENLAFAXINE HCL XR 75 MG CAPXR PO SCH (09:00)
[2020-03-30] MEDS ORDERED: valACYclovir HCL 500 MG TABLET PO SCH (09:00)
--- NOTE | 2020-03-30 12:36 | Hospitalist Progress Note ---
Date of Service March 30, 2020 Assessment & Plan (1) Dental infection: Facial Cellulitis Likely due to recent tooth extraction -Face CT:Focal subcutaneous edema and skin thickening about the left temporal distribution suggests cellulitis without abscess or foreign body identified. Mildly prominent left facial lymph nodes are likely on a reactive basis. Minimal mucosal thickening about the maxillary sinuses. -Currently no drainable abscess -Appreciate maxillofacial surgery input --Received IV clindamycin --Given H/O C diff..will DC Clindamycin --Plan to transition to PO Doxy and Augmentin upon discharge -No significant pain -Tolerating diet -Blood Cultures:pending (2) Hypertension: BP Stable continue losartan (3) Depression: Stable continue home medications (4) DVT prophylaxis: -SCDs, ambulate Admission and Anticipated Discharge Date Admission Date: March 29, 2020 Subjective Patient is seen and examined at bedside States feeling lot better today Facial swelling much improved Able to tolerate diet Tooth pain improved as well Eager to get discharged Denies chest pain, SOB, dizziness, nausea, abd pain Review of Systems Review of Systems: All systems reviewed & are unremarkable except as noted in HPI & below Physical Exam Physical Exam: Physical Exam: Vitals signs as noted above General Appearance:Obese, no apparent distress Head: normocephalic, Atraumatic, +R facial swelling, No erythema, non tender Eyes: normal inspection, EOMI Neck: supple, Trachea midline Respiratory/Chest: Normal breath sounds, CTA Cardiovascular: S1, S2, No murmur Abdomen/GI:Soft, Non tender, Bowel sounds present Extremities/Musculoskelatal:normal inspection, no edema Neurologic/Psych:AAOX3, grossly no focal neurological deficits Skin: normal color, warm Results & Data Results & Data ([facility]) Vital Signs (Past 12 Hours) Vital Signs Temp Pulse Resp BP Pulse Ox 03/30/20 08:46 36.7 C 73 18 117/73 95 Laboratory Results Short CBC 03/29/20 03/30/20 Range/Units 14:48 06:47 WBC 5.32 5.39 (4.8-10.8) K/uL Hgb 13.4 12.6 (12.0-16.0) g/dL Hct 40.7 38.7 (37-47) % Plt Count 283 269 (130-400) K/uL BMP 03/29/20 03/30/20 14:48 06:47 Sodium 139 141 Potassium 4.1 4.0 Chloride 104 110 H Carbon Dioxide 28 27 BUN 17 15 Creatinine 0.73 0.69 Glucose 96 94 Calcium 9.4 8.5 Liver Function 03/29/20 Range/Units 14:48 Total Bilirubin 0.2 (0.2-1) mg/dl AST 30 (15-37) U/L ALT 44 (12-78) U/L Alkaline Phosphatase 90 (45-117) U/L Albumin 3.9 (3.4-5.0) gm/dl
--- NOTE | 2020-03-30 12:44 | Discharge Summary ---
Date of Service March 30, 2020 Admission HPI Per Admitting Provider 54-year-old female with PMH HTN, RLS, depression, and other problems as below who was referred to the ED by PCP for evaluation of abnormal neck CT and dental infection. Patient reports that 1 week ago, she developed sore throat and right facial swelling. Patient was seen at [facility] and was prescribed Augmentin on 03/22. Patient reports she had no improvement. She was also having trismus. Patient was seen by PCP on 03/27 and prescribed doxycycline in addition to the Augmentin. Patient reports significant improvement in swelling and throat pain since the addition of doxycycline. She had a CT of the neck performed today that showed multispatial anterior right cervicofacial inflammatory changes consistent with cellulitis and phlegmon. Cellulitic changes extend around the recently extracted right anterolateral tooth socket, suggesting an odontogenic origin. Patient was for to the ED for further evaluation. She reports that she was having some difficulty swallowing however that has resolved. Patient denies fevers and chills. No chest pain or shortness of breath. Denies lightheadedness, dizziness, diaphoresis, syncopal events. No abdominal pain, nausea, vomiting, diarrhea. Denies urinary symptoms. In the ED, patient is hemodynamically stable, saturating well on room air. Labs are unremarkable. Patient was given IVF and IV clindamycin. Of note, patient reports being tested this morning for COVID 19 by her employer and results were negative. Admission Exam Per Admitting Provider Physical Exam Constitutional: WD/WN, vitals as above Eyes: PERRL, conjunctivae normal, anicteric sclerae ENMT: Ears: no external ear abnormality Nose: no external nose abnormality Right lower tooth extraction site without redness or drainage Neck: no tracheal deviation and neck nontender Mild right-sided neck swelling Respiratory: normal respiratory effort, lungs clear to auscultation Cardiovascular: Rate/Rhythm: regular rate and regular rhythm Vessels: normal peripheral pulses Extremities: no edema Gastrointestinal (Abdomen): normal bowel sounds, soft, nontender, no hepatosplenomegaly Musculoskeletal: no cyanosis or clubbing, extremities motor strength 5/5 Skin: no rashes, warm and dry Neurologic: PERRL, EOMI, accommodation nl, no face palsy, no dysarthria Psychiatric: A+Ox3, euthymic affect Principal Diagnosis Facial Cellulitis Discharge Data Allergies Allergy/AdvReac Type Severity Reaction Status Date / Time sulfamethoxazole Allergy Severe RASH & Verified 03/29/20 15:53 [From Bactrim] BLISTERS trimethoprim [From Bactrim] Allergy Severe RASH & Verified 03/29/20 15:53 BLISTERS Consultations 03/29/20 16:31 ED Decision to Admit Stat 03/29/20 19:13 Consult Oromaxillofacial Surgery Routine Procedures Performed -Face CT:Focal subcutaneous edema and skin thickening about the left temporal distribution suggests cellulitis without abscess or foreign body identified. Mildly prominent left facial lymph nodes are likely on a reactive basis. Minimal mucosal thickening about the maxillary sinuses. Hospital Course (1) Dental infection: Facial Cellulitis Likely due to recent tooth extraction -Face CT:Focal subcutaneous edema and skin thickening about the left temporal distribution suggests cellulitis without abscess or foreign body identified. Mildly prominent left facial lymph nodes are likely on a reactive basis. Minimal mucosal thickening about the maxillary sinuses. -Currently no drainable abscess -Appreciate maxillofacial surgery input --Received IV clindamycin --Given H/O C diff..will DC Clindamycin --Plan to transition to PO Doxy and Augmentin upon discharge -No significant pain -Tolerating diet -Blood Cultures:pending (2) Hypertension: BP Stable continue losartan (3) Depression: Stable continue home medications (4) DVT prophylaxis: -SCDs, ambulate Total Time Total Time Spent Total Time Spent (In Minutes): 40 minutes Total Time Includes: Examination of the Patient, Discharge Planning, Medication Reconciliation, Communication With Other Providers and Other Discharge Plan Discharge Items Patient Disposition: Home - Self-Care Reason For Visit: DENTAL INFECTION Discharge Diagnosis: Facial Cellulitis Activity: Resume your previous activity Lifting: Gradually increase as tolerated Bathing: No limitations Exercise/Sports: Gradually increase as tolerated Weightbearing: Full weightbearing Non-emergency contact: Primary Care Provider Call non-emergency contact if: your symptoms worsen, your pain is not controlled, your temperature is above 101.5, your wound has increased drainage and your wound pain has increased Follow-up/Referrals: Zaira Lopez MD [Primary Care Provider] - 04/02/20 11:00 am (Your appointment will be with Samaria Faulkner PA-C. Arrrival time is at 10:45 please bring a photo ID, updated insurance card and any co-pay you might have.) Diet: Regular Addtl Attending Provider Instructions: Follow-up with your primary care physician Dr. Lopez in 1 week upon discharge Complete the antibiotic course--doxycycline, Augmentin as advised (7 more days) Your blood cultures are pending at the time of discharge. Follow-up with your physician for results. Seek immediate medical attention if your symptoms reoccur or worsen ADDITIONAL ACTIVITY RECOMMENDATIONS: * [place] teeth after every meal. It is very important to keep your mouth clean to prevent infection. SPECIAL CARE INSTRUCTIONS: * start rinsing your mouth with 1/2 teaspoon salt in 8 ounces warm water. This rinse should be used every 4-6 hours. * Please follow up with your dentist for a routine dental exam and cleaning * Diet as tolerated * complete the oral antibiotics as instructed Pending Studies at Discharge: Yes Studies:: Blood Cultures Stand-Alone Forms: [facility] [employer], Work/School Release (Inpt), Smoking Cessation Medications and DC Order Prescriptions: Continued multivitamin Tablet 1 tab PO DAILY RF: 0 losartan [Cozaar] 50 mg tablet 50 mg PO DAILY RF: 0 trazodone 50 mg tablet 50 mg PO HS RF: 0 meloxicam [Mobic] 15 mg tablet 15 mg PO DAILY RF: 0 fexofenadine [Octavia Allergy] 180 mg tablet 180 mg PO DAILY PRN (Reason: Allergic Symptoms) RF: 0 diphenhydramine HCl [Benadryl] 25 mg Capsule 25 mg PO HS PRN (Reason: Insomnia) RF: 0 fluticasone propionate [Flonase Allergy Relief] 50 mcg/actuation spray,suspension 2 spray Intranasal DAILY RF: 0 vitamin E 400 unit Capsule 400 unit PO BID RF: 0 calcium carbonate-vitamin D3 [Calcium 500 With D] 500 mg(1,250mg) -400 unit Tablet 1 tab PO DAILY RF: 0 omega 6-jii-akw-fish oil [Fish Oil] 1,000 mg (120 mg-180 mg) Capsule 1 tab PO DAILY RF: 0 montelukast [Singulair] 10 mg Tablet 10 mg PO PM RF: 0 docosanol [Abreva] 10 % Cream 1 applic TOPICAL UD PRN (Reason: breakouts) RF: 0 venlafaxine [Effexor XR] 75 mg capsule,extended release 24hr 75 mg PO DAILY RF: 0 ibuprofen [IBU] 800 mg tablet 800 mg PO TID PRN (Reason: Pain) RF: 0 ondansetron HCl 4 mg Tablet 4 mg PO Q6H PRN (Reason: Nausea) RF: 0 valacyclovir [Valtrex] 500 mg tablet 500 mg PO DAILY RF: 0 garlic 1,000 mg Capsule 1,000 mg PO DAILY RF: 0 ropinirole 2 mg tablet 2 mg PO HS RF: 0 dextroamphetamine-amphetamine [Adderall XR] 30 mg capsule,extended release 24hr 30 mg PO DAILY RF: 0 escitalopram oxalate [Lexapro] 20 mg tablet 20 mg PO DAILY RF: 0 dextroamphetamine-amphetamine 10 mg tablet 10 mg PO QDD RF: 0 doxycycline hyclate 100 mg capsule 100 mg PO BID Qty: 12 RF: 0 amoxicillin-pot clavulanate 875-125 mg tablet 1 tab PO BID Qty: 12 RF: 0 Discharge Orders: Discharge Order (Routine); Ordered 03/30/20 Ordered By: Marcio Link/Other Patient Handouts: ED Abscess, Antibiotic Treatment Only Admission Data Admit Date/Time: 03/29/20 17:25 Attending Provider: Marcio Gaffney Admit Provider: Yoan Villeda Primary Care Provider: Zaira Lopez Other Providers: Yoan Villeda ; Murali Mann Other Interventions: Discharge Summary Assessment (RN) Last Done: 03/30/20 12:51
[2020-03-30] MEDS ORDERED: AMPHETAMINE ASP/SULF/DEXTRAMPH 10 MG TAB PO SCH (16:30)
== END 2020-03-30 13:20 | disposition home or self-care (01) ==
LOC: 3W 13:55 → ED 13:55 → SUATTDRO 17:25 → 3W 18:52